=== PATIENT | female | born 1945 | race Caucasian/White ===

== ENCOUNTER → 2016-07-19 | Outpatient (CLI) | payer MEDICARE, OTHER ==
[~2016-07-19] MED LIST: ASPIR 8181 M1 PO; Colace PO; Coumadin,Jantoven PO; DESYREL100 MG PO; KLONOPIN0.5 M1 PO; KlonoPIN PO; LEXAPRO10 MG PO; LOPRESSOR25 MG PO; Levothroid,Synthroid PO; Lopressor PO; SINGULAIR10 MG PO; SYNTHROID75 MCG PO; Singulair PO; ULTRAM50 MG PO; VENTOLIN HFA18 GM IH; VICODIN,LORT1 TABLET PO; Vicodin,Norco 5/325 PO; Xanax PO; ZOCOR20 MG PO; ZOFRAN4 MG PO; ZOLOFT50 MG PO; Zocor PO
== END | disposition home or self-care (01) ==
LOC: CDC 11:27
DX: R00.1 Bradycardia, unspecified (principal); R51 Headache
CPT/HCPCS: 93000

== ENCOUNTER 2016-07-22 11:42 | Day surgery (SDC) | payer OTHER ==
[~2016-07-22] VITALS: Ht 157.5 cm; Wt 92.0 kg
[2016-07-22 12:16] VITALS: BP 173/71
[2016-07-22 16:07] VITALS: BP 140/60
[2016-07-22 16:53] VITALS: BP 110/62
== END 2016-07-22 17:02 | disposition home or self-care (01) ==
LOC: SDC 11:42
PROC: 03BT0ZX Excision of Left Temporal Artery, Open Approach, Diagnostic (ICD-10-PCS; principal; 2016-07-22)
DX: R51 Headache (principal); I10 Essential (primary) hypertension; F41.9 Anxiety disorder, unspecified; E03.9 Hypothyroidism, unspecified; J30.9 Allergic rhinitis, unspecified; Z79.82 Long term (current) use of aspirin; Z88.1 Allergy status to other antibiotic agents; Z88.5 Allergy status to narcotic agent
CPT/HCPCS: 88305; 88313; J0131; J0690; J2250; J3010

== ENCOUNTER 2017-09-05 13:04 | Emergency (ER) | payer OTHER ==
[~2017-09-05] VITALS: Ht 157.5 cm; Wt 87.0 kg
[2017-09-05] MEDS ORDERED: VIBRAMYCIN100 MG PO (14:32)
[2017-09-05 15:02] VITALS: BP 128/73
[2017-09-06 09:52] LABS: LYME DISEASE SEROLOGY SCREEN NEGATIVE (NEGATIVE)
== END 2017-09-05 15:03 | disposition home or self-care (01) ==
LOC: EME 13:04
PROVIDERS: Nurse Practitioner Family
DX: S70.361A Insect bite (nonvenomous), right thigh, initial encounter (principal); W57.XXXA Bitten or stung by nonvenomous insect and other nonvenomous arthropods, initial encounter; J44.9 Chronic obstructive pulmonary disease, unspecified; E03.9 Hypothyroidism, unspecified; Z86.73 Personal history of transient ischemic attack (TIA), and cerebral infarction without residual deficits; Z90.49 Acquired absence of other specified parts of digestive tract; Z90.710 Acquired absence of both cervix and uterus; Z79.82 Long term (current) use of aspirin; Z88.5 Allergy status to narcotic agent
CPT/HCPCS: 86618; 99281; 99284